=== PATIENT | male | born 1940 | race Caucasian/White ===

== ENCOUNTER 2019-06-19 07:47 | Inpatient (IN) | payer BC, OTHER ==
[~2019-06-19] VITALS: Ht 165.1 cm; Wt 78.5 kg
[2019-06-19 07:50] VITALS: BP 167/100
--- NOTE | 2019-06-19 07:50 | NUR ---
TO BED # 09 AMBULATORY
[2019-06-19] MEDS ORDERED: NACL 0.9% 1,000 ML IV ONE (08:20)
[2019-06-19] MEDS ORDERED: ASPIRIN 81 MG TAB.CHEW PO ONE (08:20)
--- NOTE | 2019-06-19 08:31 | NUR ---
ERMD AT BEDSIDE
[2019-06-19] MEDS ORDERED: METOPROLOL 50 MG TAB PO ONE (08:50)
[2019-06-19] MEDS ORDERED: NITROGLYCERIN 2% 1 GM PKT TP ONE (08:50)
--- NOTE | 2019-06-19 08:58 | NUR ---
77 Y/O MALE PRESENTS TO ER WITH C/O CHEST PAIN X3DAYS. NKDA, DENIES ANY PMH. NOT TAKING ANY PRESCRIBED OR OTC MEDICATIONS. DENIES ANY NAUSEA, DIARRHEA, HEADACHES, OR SOB. RATES PAIN AT 4 ON 0-10 SCALE. DENIES RADIATION TO OTHER AREAS OF THE BODY. STATES HE HAS INCREASED PHYSICAL DAILY EXERCISE ACTIVITY. 20G IV PLACED AT RAC. SIDERAIL X1. WILL CONTINUE TO MONITOR.
--- NOTE | 2019-06-19 09:00 | NUR ---
XRAY AT BEDSIDE
--- NOTE | 2019-06-19 09:05 | NUR ---
LAB AT BEDSIDE
[2019-06-19 09:15] LABS: BASOPHILS # (AUTO) 0.1 K/uL (0.00-0.22); BASOPHILS % (AUTO) 1.6 % (0.0-2.0); EOSINOPHILS % (AUTO) 0.5 % (0.0-4.0); HEMATOCRIT 46.4 % (36-52); HEMOGLOBIN 16.3 g/dL (12.0-18.0); LYMPHOCYTES # (AUTO) 0.9 K/uL (2.0-11.5); MEAN CORPUSCULAR HEMOGLOBIN 33 pg (27-31); MEAN CORPUSCULAR HGB CONC 35 g/dL (33-37); MEAN CORPUSCULAR VOLUME 95.2 fL (80-94); MONOCYTES # (AUTO) 0.7 K/uL (0.8-1.0); MONOCYTES % (AUTO) 12.2 % (1.7-9.3); NEUTROPHILS # (AUTO) 4.1 K/uL (1.8-7.7); NEUTROPHILS % (AUTO) 70.7 % (42.2-75.2); PLATELET COUNT (AUTO) 313 K/uL (140-450); RED BLOOD CELL COUNT(AUTO) 4.87 MIL/uL (4.20-6.10); RED CELL DISTRIBUTION WIDTH 14.6 % (11.6-13.7); WHITE BLOOD COUNT (AUTO) 5.8 K/uL (4.8-10.8)
[2019-06-19 09:17] LABS: BILIRUBIN,URINE 3+ (NEGATIVE); BLOOD, URINE TRACE-I (NEGATIVE); LEUKOCYTE ESTERASE ,URINE TRACE (NEGATIVE); NITRITE, URINE POSITIVE (NEGATIVE); PH,URINE 5.5 (5.0-9.0); UGLUCOSE TRACE (NEGATIVE)
[2019-06-19 09:22] LABS: APPEARANCE,URINE HAZY (CLEAR)
[2019-06-19 09:23] LABS: COLOR,URINE AMBER (YELLOW)
[2019-06-19 09:33] LABS: RBC,URINE 0-5 /HPF (0-5); WBC,URINE 0-5 /HPF (0-5)
[2019-06-19 09:35] LABS: URINE AMORPHOUS URATE 1+ /HPF (None Seen)
[2019-06-19 09:36] LABS: PROTHROMBIN TIME 9.6 secs (10.8-13.4)
[2019-06-19 09:37] LABS: ALBUMIN 3.1 g/dL (3.4-5.0); ANION GAP 11.5 (8-16); ASPARTATE AMINOTRANSFERASE 155 U/L (15-37); CARBON DIOXIDE 27.4 mmol/L (21-32); CHLORIDE 104 mmol/L (98-107); GLUCOSE 96 mg/dL (74-106); POTASSIUM 4.9 mmol/L (3.5-5.1); SODIUM SERUM 138 mmol/L (136-145); TOTAL BILIRUBIN 8.9 mg/dL (0.0-1.0); UREA NITROGEN, BLOOD 13 mg/dL (7-18)
--- NOTE | 2019-06-19 10:17 | NUR ---
PT RESTING IN BED, SIDE RAIL X1
--- NOTE | 2019-06-19 12:21 | NUR ---
PT RESTING IN BED, SIDE RAIL X1
[2019-06-19] MEDS ORDERED: ACETAMINOPHEN 325 MG TAB PO PRN (12:55)
[2019-06-19] MEDS ORDERED: LORazepam 2 MG/ML VIAL IM/IVP PRN (12:55)
[2019-06-19] MEDS ORDERED: ONDANSETRON 4 MG/2 ML VIAL IM/IVP PRN (12:55)
[2019-06-19] MEDS ORDERED: HYDROcodone/APAP 5/325 MG 1 TAB TAB PO PRN (12:55)
[2019-06-19] MEDS ORDERED: ZOLPIDEM 5 MG TAB PO PRN (12:55)
[2019-06-19] MEDS ORDERED: MORPHINE SULFATE 2 MG/ML SYR IVP PRN (12:55)
[2019-06-19] MEDS ORDERED: DOCUSATE SODIUM 100 MG GELCAP PO PRN (12:55)
--- NOTE | 2019-06-19 13:30 | NUR ---
Patient will be admitted to care of [facility]. Admited to TELEMETRY. Will go to room 106B. Belongings list completed. Report to FAY BECKHAM.
--- NOTE | 2019-06-19 13:30 | NUR ---
PATIENT WHEELED ON FLOOR. REPORT RECEIVED BY MARINE ENGINEERING PROFESSOR NURSE AT BEDSIDE FOR CONTINUITY OF CARE. MRSA SCREENING DONE. RESPIRATIONS EVEN AND UNLABORED ON ROOM AIR. PATIENT DENIES PAIN, IV SITE INTACT, SL. UPDATED BOARD. UPDATED PATIENT WITH PLAN OF CARE, HE VERBALIZED UNDERSTANDING. ORIENTED PATIENT TO ROOM, CALL LIGHT, TV, BATHROOM, VISITING HOURS. CALL LIGHT WITHIN REACH, WILL CONTINUE TO MONITOR PATIENT.
[2019-06-19 14:00] VITALS: BP 158/76
[2019-06-19] MEDS: NACL 0.9% 1,000 ML IV SCH (14:24)
[2019-06-19 14:43] LABS: PHOSPHORUS 2.7 mg/dL (2.5-4.9); THYROID STIMULATING HORMONE 0.92 uIU/mL (0.34-3.74)
--- NOTE | 2019-06-19 14:43 | NUR ---
DOCTOR DELROY IN TO SPEAK TO PATIENT. WILL WAIT FOR HIS NEW ORDERS. CALLED LAB TO COORDINATE BLOOD CULTURES.
[2019-06-19 16:00] VITALS: BP 156/82
--- NOTE | 2019-06-19 17:01 | NUR ---
PATIENT WHEELED OFF FLOOR TO GO TO RADIOLOGY FOR CT ABD/PELVIS. WILL WAIT FOR RESULTS.
--- NOTE | 2019-06-19 19:30 | NUR ---
REPORT GIVEN TO COLLEGE TUTOR NURSE AT BEDSIDE FOR CONTINUITY OF CARE. PATIENT IN STABLE CONDITION.
--- NOTE | 2019-06-19 19:31 | NUR ---
RECEIVED BEDSIDE REPORT FROM DAY RN. PT IS AAOX4. RESPIRATIONS ARE EQUAL AND UNLABORED ON ROOM AIR. LUNG SOUNDS ARE CLEAR. SKIN IS INTACT. C/C CHEST PAIN. DX CHEST PAIN. PT DENIES ANY PAIN AT THIS TIME. TROP NEG X2. PT IS AMBULATORY. IV ON RAC 20G NS INFUSING AT 60M/H. POC DISCUSSED WITH PT. CALL LIGHT IS WITHIN REACH. WILL CONTINUE TO MONITOR.
[2019-06-19 20:00] VITALS: BP 145/79
[2019-06-19] MEDS ORDERED: METOPROLOL 50 MG TAB PO SCH (21:00)
--- NOTE | 2019-06-19 21:00 | NUR ---
PATIENT IS RESTING COMFORTABLY IN BED. NO S/S OF DISTRESS. VSS. DENIES PAIN. ALL NEEDS MET AT THIS TIME. CALL LIGHT IS WITHIN REACH. WILL CONTINUE TO MONITOR.
--- NOTE | 2019-06-19 22:40 | NUR ---
PATIENT IS SLEEPING COMFORTABLY IN BED. CHEST RISE AND FALL NOTED. ALL SAFETY MEASURES ARE IN PLACE. CALL LIGHT IS WITHIN REACH.
[2019-06-20] VITALS: BP 144/88
--- NOTE | 2019-06-20 | NUR ---
VITAL SIGNS ARE WITHIN NORMAL LIMITS. ALL SAFETY MEASURES ARE IN PLACE. CALL LIGHT IS WITHIN REACH. WILL CONTINUE TO MONITOR.
--- NOTE | 2019-06-20 02:00 | NUR ---
PT IS SLEEPING WITH CHEST RISE AND FALL. NO S/S OF DISTRESS. CALL LIGHT IS WITHIN REACH.
[2019-06-20 04:00] VITALS: BP 123/44
--- NOTE | 2019-06-20 04:11 | NUR ---
VITAL SIGNS ARE WITHIN NORMAL LIMITS. ALL SAFETY MEASURES ARE IN PLACE. WILL CONTINUE TO MONITOR.
[2019-06-20] MEDS: NACL 0.9% 1,000 ML IV SCH (06:31)
--- NOTE | 2019-06-20 07:16 | NUR ---
GAVE BEDSIDE REPORT TO DAY RN. PT ENDORSED IN STABLE CONDITION.
--- NOTE | 2019-06-20 07:17 | NUR ---
RECEIVED REPORT FROM MANAGER LEGAL NURSE. PATIENT SITTING IN BED, NO DISTRESS NOTED. DENIES ANY PAIN. AAOX4, CALM, COOPERATIVE, SKIN COLOR APPROPRIATE ETHNICITY. SKIN INTACT. IV SITE INTACT, PATENT, AND INFUSING IVF PER MD ORDERS. RESPIRATIONS EVEN, UNLABORED, ON ROOM AIR. REVIEWED PLAN OF CARE WITH PATIENT. PATIENT VERBALIZED UNDERSTANDING. SAFETY MEASURES IN PLACE, CALL LIGHT WITHIN REACH. WILL CONTINUE TO MONITOR.
[2019-06-20 07:37] LABS: BASOPHILS % (AUTO) 0.6 % (0.0-2.0); EOSINOPHILS % (AUTO) 0.4 % (0.0-4.0); HEMATOCRIT 42.2 % (36-52); HEMOGLOBIN 14.9 g/dL (12.0-18.0); LYMPHOCYTES # (AUTO) 0.9 K/uL (2.0-11.5); LYMPHOCYTES % (AUTO) 16.2 % (20.5-51.1); MEAN CORPUSCULAR HEMOGLOBIN 34 pg (27-31); MEAN CORPUSCULAR HGB CONC 35 g/dL (33-37); MEAN CORPUSCULAR VOLUME 95.1 fL (80-94); MONOCYTES # (AUTO) 0.6 K/uL (0.8-1.0); MONOCYTES % (AUTO) 10.5 % (1.7-9.3); NEUTROPHILS # (AUTO) 4.1 K/uL (1.8-7.7); NEUTROPHILS % (AUTO) 72.3 % (42.2-75.2); PLATELET COUNT (AUTO) 304 K/uL (140-450); RED BLOOD CELL COUNT(AUTO) 4.44 MIL/uL (4.20-6.10); RED CELL DISTRIBUTION WIDTH 14.6 % (11.6-13.7); WHITE BLOOD COUNT (AUTO) 5.7 K/uL (4.8-10.8)
[2019-06-20 07:53] LABS: CARBON DIOXIDE 23.9 mmol/L (21-32); CHLORIDE 104 mmol/L (98-107); CREATININE 0.7 mg/dL (0.6-1.3); GLUCOSE 86 mg/dL (74-106); POTASSIUM 3.9 mmol/L (3.5-5.1); SODIUM SERUM 136 mmol/L (136-145); UREA NITROGEN, BLOOD 13 mg/dL (7-18)
[2019-06-20 07:56] LABS: CHOL/HDL RATIO 23.3 (1-4.5)
[2019-06-20 08:00] VITALS: BP 148/82
--- NOTE | 2019-06-20 08:51 | NUR ---
PATIENT HAS BEEN SCREENED AND CATEGORIZED HIGH NUTRITION RISK. PATIENT WILL BE SEEN WITHIN 1-2 DAYS OF ADMISSION. 06/20/19-06/21/[address]
[2019-06-20 09:32] LABS: ALBUMIN 2.8 g/dL (3.4-5.0); BILIRUBIN,DIRECT 6.4 mg/dL (0.0-0.3); TOTAL BILIRUBIN 7.8 mg/dL (0.0-1.0)
[2019-06-20] MEDS: ASPIRIN 81 MG TAB.CHEW PO SCH (09:49)
[2019-06-20] MEDS: LACTOBACILLUS RHAMNOSUS GG 1 EACH CAP PO SCH (09:50)
[2019-06-20] MEDS: ATORVASTATIN 20 MG TAB PO SCH (09:51)
[2019-06-20] MEDS: LISINOPRIL 5 MG TAB PO SCH (09:51)
[2019-06-20] MEDS: METOPROLOL 25 MG TAB PO SCH ×2 (09:52→20:05)
--- NOTE | 2019-06-20 09:58 | NUR ---
PATIENT SITTING DOWN IN BED TALKING TO FRIEND AT BEDSIDE. NO DISTRESS NOTED. DENIES ANY CHEST PAIN. SCHEDULED MEDICATIONS DUE GIVEN. WILL CONTINUE TO MONITOR.
[2019-06-20 12:00] VITALS: BP 158/88
--- NOTE | 2019-06-20 12:00 | NUR ---
DR. LAFLEUR AT BEDSIDE REVIEWING PLAN OF CAR WITH PATIENT. WILL CONTINUE TO MONITOR.
--- NOTE | 2019-06-20 14:30 | NUR ---
PATIENT SITTING IN BED TALKING TO FRIEND AT BEDSIDE. DENIES CHEST PAIN. CONDITION UNCHANGED. WILL CONTINUE TO MONITOR.
[2019-06-20] MEDS: LACTATED RINGERS 1,000 ML IV SCH (15:00)
--- NOTE | 2019-06-20 15:41 | NUR ---
DISCHARGE PLANNING: THIS IS A 78 Y/O FEMALE FROM HOME, WHO CAME IN DUE TO CHEST PAIN X 3 DAYS. PAST MEDICAL HISTORY INCLUDE GERD, S/P PROSTATECTOMY. INITIAL DIAGNOSIS OF CHEST PAIN. CURRENT LABS INCLUDE WBC 5.7, H/H 14.9/42.2, NA/K 136/3.9, BUN/CREA 13/0.7 AND TROP 0.017. ON RINGER'S SOLUTION AT 80 MLS/HR. CARDIO AND PULMO CONSULTS IN PLACE. DC PLAN BACK TO HOME ONCE STABLE. Addendum: 06/21/19 at 1526 by Alice Pritchett CM CURRENT LABS INCLUDE WBC 5.1, H/H 14.8/41.6, NA/K 139/4.1, BUN/CREA 13.0/0.9, ALB 2.5. BLOOD, URINE C/S AND MRSA NARES PENDING. S/P ERCP WITH STENT PLACEMENT WITH DR. LAFLEUR 06/21/2019. DC PLAN BACK TO HOME ONCE STABLE. Addendum: 06/22/19 at 1309 by Alice Pritchett CM 1225: RECEIVED A CALL FROM PIPE OF [facility], INQUIRING ABOUT THIS PATIENT. SHE STATED THAT ONE OF OUR DOCTORS CALLED THEM YESTERDAY REQUESTING FOR HIGHER LEVEL TRANSFER. CONTACTED DR. AWAN REGARDING THIS MATTER. HE STATED THAT PATIENT WILL DISCHARGING TODAY AND WILL HAVE A FOLLOW UP VISIT WITH [facility] PHYSICIAN OUT PATIENT FOLLOW UP VISIT. CONTACTED PIPE OF [facility] AND INFORMED HER THAT PATIENT NEEDS TO FOLLOW UP WITH DR. ALMEIDA OUT PATIENT. Addendum: 06/22/19 at 1438 by Alice Pritchett MET WITH THE PATIENT AT THE BEDSIDE TO HAVE HIM SIGN THE RELEASE OF INFORMATION FORM. PATIENT SIGNED IT AND PLACED IN THE CHART. [place] [facility] [place] [phone], ABLE TO SPEAK TO KESHAWN. SHE PROVIDED ME WITH DR. ALMEIDA'S FAX NUMBER [phone] AND ATTN TO [facility] FAXED TO THE PROVIDED NUMBER. CONTACTED PATIENT AT [phone], INFORMED HIM THAT I ALREADY SENT HIS RECORDS TO DR. ALMEIDA'S OFFICE. I ALSO PROVIDED HIM WITH [facility]'S PHONE NUMBER WHERE HE CAN FOLLOW UP WITH THE APPOINTMENT. HE STATED THAT HE REALLY APPRECIATE THE HELP.
[2019-06-20 16:00] VITALS: BP 155/89
--- NOTE | 2019-06-20 17:30 | NUR ---
SITTING IN BED WATCHING TV. CONDITION UNCHANGED. WILL CONTINUE TO MONITOR.
--- NOTE | 2019-06-20 19:14 | NUR ---
GAVE REPORT TO DATA SCIENCE AND IOT MANAGER NURSE FOR CONTINUITY OF CARE. PATIENT IN STABLE CONDITION.
--- NOTE | 2019-06-20 19:19 | NUR ---
RECEIVED PATIENT IN STABLE CONDITION FROM AM SHIFT FOR CONTINUITY OF CARE. FRIEND AT BEDSIDE. RESPIRATIONS EVEN, UNLABORED. IV SITE TO LEFT FOREARM 22G PATENT/INTACT, INFUSING FLUIDS WELL. NO C/O PAIN. NO S/SX ACUTE DISTRESS. CALL LIGHT WITHIN REACH. WILL CONTINUE TO MONITOR.
[2019-06-20 20:00] VITALS: BP 153/93
[2019-06-20] MEDS: FAMOTIDINE 20 MG TAB PO SCH (20:05)
--- NOTE | 2019-06-20 21:05 | NUR ---
MADE ROUNDS. PATIENT IS IN STABLE CONDITION. NO C/O PAIN. NO S/SX ACUTE DISTRESS. CALL LIGHT WITHIN REACH. WILL CONTINUE TO MONITOR.
--- NOTE | 2019-06-20 23:07 | NUR ---
MADE ROUNDS. PATIENT IS IN STABLE CONDITION. NO C/O PAIN. NO S/SX ACUTE DISTRESS. CALL LIGHT WITHIN REACH. WILL CONTINUE TO MONITOR.
[2019-06-21] VITALS: BP 151/83
--- NOTE | 2019-06-21 01:07 | NUR ---
PATIENT ASLEEP AND IN STABLE CONDITION. NO C/O PAIN. NO S/SX ACUTE DISTRESS. CALL LIGHT WITHIN REACH. WILL CONTINUE TO MONITOR.
--- NOTE | 2019-06-21 01:10 | NUR ---
RECEIVED PT SLEEPING, NO SIGNS OF DISTRESS, MAINTAINED ON NPO EXCEPT MEDS STATUS, IVF INFUSING WELL, MONITORED CLOSELY.
[2019-06-21] MEDS: LACTATED RINGERS 1,000 ML IV SCH ×2 (01:15→13:40)
[2019-06-21 04:00] VITALS: BP 139/85
--- NOTE | 2019-06-21 04:00 | NUR ---
PT SLEEPING, EASILY AROUSABLE, VITAL SIGNS STABLE, DENIES ANY PAIN, MAINTAINED ON NPO, MONITORED CLOSELY.
[2019-06-21 06:07] LABS: HEPATITIS A ANTIBODY IGM Negative (Negative); HEPATITIS B CORE AB TOTAL Negative (Negative); HEPATITIS B SURFACE ANTIBODY Non Reactive (.); HEPATITIS B SURFACE ANTIGEN Negative (Negative)
[2019-06-21 07:21] LABS: ALBUMIN 2.5 g/dL (3.4-5.0); ASPARTATE AMINOTRANSFERASE 107 U/L (15-37); CARBON DIOXIDE 26.1 mmol/L (21-32); CHLORIDE 104 mmol/L (98-107); CREATININE 0.9 mg/dL (0.6-1.3); GLUCOSE 80 mg/dL (74-106); MAGNESIUM 1.8 mg/dL (1.8-2.4); PHOSPHORUS 2.8 mg/dL (2.5-4.9); POTASSIUM 4.1 mmol/L (3.5-5.1); SODIUM SERUM 139 mmol/L (136-145); TOTAL BILIRUBIN 8.9 mg/dL (0.0-1.0); UREA NITROGEN, BLOOD 13 mg/dL (7-18)
--- NOTE | 2019-06-21 07:30 | NUR ---
PT AWAKE, NO SIGNS OF DISTRESS, REPORT GIVEN TO FAY VALDEZ FOR CONTINUITY OF CARE. Addendum: 06/21/19 at 0745 by Ren Ashford RN REPORT GIVEN TO FAY FLORES.
--- NOTE | 2019-06-21 07:35 | NUR ---
RECEIVED BEDSIDE REPORT FROM NIGHT NURSE. PATIENT IN STABLE CONDITION. INTRODUCED SELF. PATIENT AAOX4. NO S/S OF DISTRESS NOTED. SKIN WARM AND DRY TO TOUCH. BED IN LOW POSITION. IV INTACT AND PATENT TO LEFT FOREARM. PLANS OF CARE DISCUSSED. CALL LIGHT WITHIN REACH. PATIENT IS SCHEDULED FOR ERCP THIS MORNING. PATIENT AWARE.
[2019-06-21 08:00] VITALS: BP 152/88
[2019-06-21 08:32] LABS: BASOPHILS # (AUTO) 0.1 K/uL (0.00-0.22); BASOPHILS % (AUTO) 1.3 % (0.0-2.0); EOSINOPHILS % (AUTO) 0.8 % (0.0-4.0); HEMATOCRIT 41.6 % (36-52); HEMOGLOBIN 14.8 g/dL (12.0-18.0); LYMPHOCYTES % (AUTO) 20.2 % (20.5-51.1); MEAN CORPUSCULAR HEMOGLOBIN 34 pg (27-31); MEAN CORPUSCULAR HGB CONC 36 g/dL (33-37); MONOCYTES # (AUTO) 0.6 K/uL (0.8-1.0); MONOCYTES % (AUTO) 12.2 % (1.7-9.3); NEUTROPHILS # (AUTO) 3.3 K/uL (1.8-7.7); NEUTROPHILS % (AUTO) 65.5 % (42.2-75.2); PLATELET COUNT (AUTO) 314 K/uL (140-450); RED BLOOD CELL COUNT(AUTO) 4.38 MIL/uL (4.20-6.10); RED CELL DISTRIBUTION WIDTH 14.9 % (11.6-13.7); WHITE BLOOD COUNT (AUTO) 5.1 K/uL (4.8-10.8)
[2019-06-21] MEDS: SENNA 8.6 MG TAB PO SCH (09:00)
[2019-06-21] MEDS: ATORVASTATIN 20 MG TAB PO SCH (09:23)
[2019-06-21] MEDS: FAMOTIDINE 20 MG TAB PO SCH ×2 (09:23→21:31)
[2019-06-21] MEDS: METOPROLOL 25 MG TAB PO SCH ×2 (09:24→21:30)
[2019-06-21] MEDS: ASPIRIN 81 MG TAB.CHEW PO SCH (09:24)
[2019-06-21] MEDS: LISINOPRIL 5 MG TAB PO SCH (09:24)
[2019-06-21] MEDS: LACTOBACILLUS RHAMNOSUS GG 1 EACH CAP PO SCH (09:24)
--- NOTE | 2019-06-21 09:55 | NUR ---
PATIENT PICKED UP BY FAY MCKINNEY GOING TO OR FOR ERCP.
[2019-06-21] MEDS ORDERED: LABETALOL 100 MG/20 ML VIAL ONE (10:15)
[2019-06-21] MEDS ORDERED: KETAMINE 500 MG/5 ML VIAL ONE (10:15)
[2019-06-21] MEDS ORDERED: hydrALAZINE 20 MG/ML VIAL ONE (10:15)
[2019-06-21] MEDS ORDERED: ONDANSETRON 4 MG/2 ML VIAL IVP PRN (10:50)
[2019-06-21] MEDS ORDERED: HYDROmorphone 1 MG/ML AMP IVP PRN (10:50)
--- NOTE | 2019-06-21 12:05 | NUR ---
PATIENT IS STILL IN OR AT THIS TIME.
[2019-06-21 12:25] VITALS: BP 101/64
--- NOTE | 2019-06-21 12:25 | NUR ---
PATIENT RETURNED FROM THE OR. PATIENT AWAKE, ALERT AND ORIENTED X4. NO DISTRESS NOTED.
--- NOTE | 2019-06-21 14:25 | NUR ---
06/21/19 RD INITIAL ASSESSMENT COMPLETED PLEASE REFER TO NUTRITION ASSESSMENT UNDER CARE ACTIVITY FOR ESTIMATED NUTRITIONAL NEEDS. 1. CONTINUE FULL LIQUID DIET TOLERATED 2. IF/WHEN MEDICALLY APPROPRIATE ADVANCE TO A CARDIAC DIET 3. RD PROVIDED EDUCATION FOR LOWERING CHOLESTEROL. PT ACCEPTED EDUCATION 4. RD TO FOLLOW-UP 3-5 DAYS, MODERATE RISK RO [address]IRE[address] RD
--- NOTE | 2019-06-21 14:30 | NUR ---
PATIENT IS AAOX4. AMBULATES TO THE RESTROOM WITH STEADY GAIT. NO S/S OF DISTRESS NOTED.
[2019-06-21 16:00] VITALS: BP 147/79
--- NOTE | 2019-06-21 16:00 | NUR ---
DR. LAFLEUR STATED PLAN FOR PATIENT IS TO BE TRANSFERRED TO HIGHER LEVEL OF CARE.
--- NOTE | 2019-06-21 17:00 | NUR ---
PATIENT IS AAOX4. RESTING IN BED QUIETLY. ABLE TO MAKE NEEDS KNOWN. CALL LIGHT WITHIN REACH. IV INTACT AND PATENT TO LEFT WRIST. NO S/S OF DISTRESS NOTED.
--- NOTE | 2019-06-21 18:00 | NUR ---
RECEIVED CALL FROM PIPE FROM [facility] NURSE TO FAX FACE SHEET AT [phone]. PHONE # [phone].
--- NOTE | 2019-06-21 19:26 | NUR ---
REPORT GIVEN TO NIGHT NURSE. PATIENT IN STABLE CONDITION.
--- NOTE | 2019-06-21 19:27 | NUR ---
RECEIVED BEDSIDE REPORT FROM DAY SHIFT NURSE SANDRA RN, PT STABLE, NO DISTRESS NOTED, IV TO L WRIST 22G, LEAKING, WILL PUT IN NEW IV, PT ON ROOM AIR, NO SOB NOTED, INITIAL ASSESSMENT DONE, ALL SAFETY PRECAUTION MET, CALL LIGHT WITHIN REACH, WILL CONTINUE TO MONITOR.
--- NOTE | 2019-06-21 20:00 | NUR ---
NEW IV INSERTED TO LE HAND 24G PATENT, INTACT, INFUSING WELL, PT RESTING, CALL LIGHT WITHIN REACH, WILL CONTINUE OT MONITOR.
--- NOTE | 2019-06-21 21:31 | NUR ---
DUE MEDICATION ADMINISTERED, PT TOLERATED WELL, NO DISTRESS NOTED, CALL LIGHT WITHIN REACH, WILL CONTINUE TO MONITOR.
--- NOTE | 2019-06-21 23:44 | NUR ---
PT RESTING, NO DISTRESS NOTED, CALL LIGHT WITHIN REACH, WILL CONTINUE TO MONITOR.
[2019-06-22] VITALS: BP 147/86
[2019-06-22] MEDS: LACTATED RINGERS 1,000 ML IV SCH (02:20)
--- NOTE | 2019-06-22 02:20 | NUR ---
IVF BAG CHANGED, PT RESTING, CALL LIGHT WITHIN REACH, WILL CONTINUE TO MONITOR.
--- NOTE | 2019-06-22 07:10 | NUR ---
RECEIVED BEDSIDE REPORT FROM RENARD. PT IS AWAKE AND ALERT, IN BED, NO S/S OF DISTRESS OR C/O CHEST PAIN OR SOB. PT IS ON ROOM AIR, SKIN INTACT, IV SITE L HAND 24 G INFUSING LR 80 ML/HR. PT IS AMBULATORY. CALL LIGHT IS WITHIN REACH.
[2019-06-22 07:13] LABS: BASOPHILS # (AUTO) 0.1 K/uL (0.00-0.22); BASOPHILS % (AUTO) 1.6 % (0.0-2.0); EOSINOPHILS % (AUTO) 0.3 % (0.0-4.0); HEMATOCRIT 43.8 % (36-52); HEMOGLOBIN 15.1 g/dL (12.0-18.0); LYMPHOCYTES # (AUTO) 1.1 K/uL (2.0-11.5); LYMPHOCYTES % (AUTO) 18.5 % (20.5-51.1); MEAN CORPUSCULAR HEMOGLOBIN 33 pg (27-31); MEAN CORPUSCULAR HGB CONC 34 g/dL (33-37); MONOCYTES # (AUTO) 0.5 K/uL (0.8-1.0); NEUTROPHILS # (AUTO) 4.2 K/uL (1.8-7.7); NEUTROPHILS % (AUTO) 70.6 % (42.2-75.2); PLATELET COUNT (AUTO) 352 K/uL (140-450); RED BLOOD CELL COUNT(AUTO) 4.56 MIL/uL (4.20-6.10); RED CELL DISTRIBUTION WIDTH 14.6 % (11.6-13.7); WHITE BLOOD COUNT (AUTO) 5.9 K/uL (4.8-10.8)
[2019-06-22 07:25] LABS: MAGNESIUM 1.9 mg/dL (1.8-2.4); PHOSPHORUS 2.8 mg/dL (2.5-4.9)
--- NOTE | 2019-06-22 07:28 | NUR ---
ENDORSED PT TO DAY SHIFT NURSE VAN RN, PT STABLE, NO DISTRESS NOTED, CALL LIGHT WITHIN REACH.
[2019-06-22 07:30] LABS: ANION GAP 12.8 (8-16); CARBON DIOXIDE 25.8 mmol/L (21-32); CHLORIDE 109 mmol/L (98-107); CREATININE 0.8 mg/dL (0.6-1.3); GLUCOSE 89 mg/dL (74-106); POTASSIUM 3.6 mmol/L (3.5-5.1); SODIUM SERUM 144 mmol/L (136-145); UREA NITROGEN, BLOOD 10 mg/dL (7-18)
[2019-06-22 08:00] VITALS: BP 162/89
--- NOTE | 2019-06-22 08:19 | NUR ---
CALLED SECURITY REGARDING PT'S REPORT OF LOST GLASSES AFTER HIS ERCP YESTERDAY. SECURITY CHECKED THE CAMERA AND VERIFIED THAT PT CAME BACK TO HIS ROOM WITH HIS GLASSES AFTER THE PROCEDURE. SECURITY WILL CHECK THE CAMERA TO SEE IF THEY ARE THE SAME GLASSES HE WENT TO PROCEDURE IN. Addendum: 06/22/19 at 0930 by Michelle Ramirez RN PT HAS A PAIR OF GLASSES ON, BUT SAYS THEY ARE NOT HIS. SAYS HIS GLASSES ARE DARK TINTED, AND ROUND. ACCORDING TO SECURITY, PT HAD ON THE GLASSES HE HAS ON RIGHT NOW.
[2019-06-22] MEDS: SENNA 8.6 MG TAB PO SCH (09:00)
[2019-06-22] MEDS: LISINOPRIL 5 MG TAB PO SCH (09:24)
[2019-06-22] MEDS: ASPIRIN 81 MG TAB.CHEW PO SCH (09:25)
[2019-06-22] MEDS: ATORVASTATIN 20 MG TAB PO SCH (09:25)
[2019-06-22] MEDS: METOPROLOL 25 MG TAB PO SCH (09:25)
[2019-06-22] MEDS: FAMOTIDINE 20 MG TAB PO SCH (09:25)
[2019-06-22] MEDS: LACTOBACILLUS RHAMNOSUS GG 1 EACH CAP PO SCH (09:25)
--- NOTE | 2019-06-22 09:30 | NUR ---
AM MEDS ADMINISTERED, PT TOLERATED WELL. PT REFUSED THE SENNA.
[2019-06-22 10:50] VITALS: BP 168/87
[2019-06-22 13:23] LABS: ALBUMIN 2.7 g/dL (3.4-5.0); BILIRUBIN,DIRECT 5.1 mg/dL (0.0-0.3); TOTAL BILIRUBIN 6.9 mg/dL (0.0-1.0)
--- NOTE | 2019-06-22 13:57 | NUR ---
PT WAS GIVEN DC INSTRUCTIONS AND VERBALIZED UNDERSTANDING OF DC TEACHING, INCLUDING FOLLOWING UP WITH [facility]. IV SITE AND WRIST BAND WERE REMOVED. PT DC'D IN STABLE CONDITION.
== END 2019-06-22 14:00 | disposition home or self-care (01) | DRG 444 ==
LOC: MED 07:47 → MTU 12:44
PROVIDERS: ADMIT General Practice; ATTEND General Practice
PROC: 0FC98ZZ Extirpation of Matter from Common Bile Duct, Via Natural or Artificial Opening Endoscopic (ICD-10-PCS; 2019-06-21)
PROC: 0FD98ZX Extraction of Common Bile Duct, Via Natural or Artificial Opening Endoscopic, Diagnostic (ICD-10-PCS; 2019-06-21)
PROC: BF101ZZ Fluoroscopy of Bile Ducts using Low Osmolar Contrast (ICD-10-PCS; 2019-06-21)
PROC: 0F798DZ Dilation of Common Bile Duct with Intraluminal Device, Via Natural or Artificial Opening Endoscopic (ICD-10-PCS; principal; 2019-06-21 10:00)
DX: K80.51 Calculus of bile duct without cholangitis or cholecystitis with obstruction (principal); I21.A1 Myocardial infarction type 2; N39.0 Urinary tract infection, site not specified; E44.0 Moderate protein-calorie malnutrition; I50.30 Unspecified diastolic (congestive) heart failure; K21.9 Gastro-esophageal reflux disease without esophagitis; K29.70 Gastritis, unspecified, without bleeding; R94.5 Abnormal results of liver function studies; I11.0 Hypertensive heart disease with heart failure; R74.0 Nonspecific elevation of levels of transaminase and lactic acid dehydrogenase [LDH]; Z68.28 Body mass index [BMI] 28.0-28.9, adult; Z90.79 Acquired absence of other genital organ(s); Z82.49 Family history of ischemic heart disease and other diseases of the circulatory system
CPT/HCPCS: 36415; 71045; 74330; 76705; 80048; 80053; 80076; 81001; 83036; 83690; 83735; 83880; 84100; 84134; 84443; 84484; 85025; 85610; 85730; 86704; 86706; 86708; 86709; 86803; 87040; 87081; 87086; 87340; 93005; 99285; C1773; J0360; J0696; J3490; J7030; J7060; J7120; Q0092; Q9967

== ENCOUNTER 2021-09-03 09:43 | Emergency (ER) | payer OTHER ==
[~2021-09-03] VITALS: Ht 165.1 cm; Wt 75.7 kg
[2021-09-03 09:56] VITALS: BP 150/93
--- NOTE | 2021-09-03 09:59 | NUR ---
PT AMB TO BED 9.
--- NOTE | 2021-09-03 10:10 | NUR ---
DR. ALFORD BEDSIDE EVALUATING PT
--- NOTE | 2021-09-03 10:12 | NUR ---
BIB SON C/O FEET PAIN X 1 MONTH. PT COMPLAINS OF FEET PAIN THAT SOMETIMES RADIATES UP TO HIS CALVES. PAIN IS 5/10. PT RESTING IN BED. PMH:HTN, PROSTATE REMOVAL, GALL BLADDER REMOVAL NKA
--- NOTE | 2021-09-03 10:34 | NUR ---
XRAY AT PATIENT BEDSIDE
[2021-09-03] MEDS ORDERED: KETOROLAC 30 MG/ML VIAL IM ONE (11:05)
[2021-09-03] MEDS ORDERED: NAPR-1704 PO (11:06)
[2021-09-03] MEDS ORDERED: ACET-8386 PO (11:06)
[2021-09-03 11:41] VITALS: BP 150/93
--- NOTE | 2021-09-03 11:42 | NUR ---
Patient discharged with v/s stable. Written and verbal after care instructions given and explained. Patient alert, oriented and verbalized understanding of instructions. Ambulatory with steady gait. All questions addressed prior to discharge. ID band removed. Patient advised to follow up with PMD. Rx of NAPROXEN AND HYDROCODONE/ACETAMINOPHEN given. Patient educated on indication of medication including possible reaction and side effects. Opportunity to ask questions provided and answered.
== END 2021-09-03 11:42 | disposition home or self-care (01) ==
LOC: MED 09:43
DX: M19.072 Primary osteoarthritis, left ankle and foot (principal); M19.071 Primary osteoarthritis, right ankle and foot; I10 Essential (primary) hypertension; Z90.49 Acquired absence of other specified parts of digestive tract; Z85.46 Personal history of malignant neoplasm of prostate; Z98.890 Other specified postprocedural states; Z79.1 Long term (current) use of non-steroidal anti-inflammatories (NSAID); Z79.891 Long term (current) use of opiate analgesic
CPT/HCPCS: 73630; 93005; 96372; 99283; J1885; Q0092

== ENCOUNTER 2022-04-10 09:45 | Emergency (ER) | payer OTHER ==
[~2022-04-10] VITALS: Ht 165.1 cm; Wt 78.6 kg
[~2022-04-10 09:45] MED LIST: ACET-8386 PO; NAPR-1704 PO
[2022-04-10 10:39] VITALS: BP 159/90
--- NOTE | 2022-04-10 10:45 | NUR ---
COVID, FLU SWABS DONE.
--- NOTE | 2022-04-10 10:50 | NUR ---
BIB SELF C/O COUGH, 2/10 SORE THROAT, EAR PAIN X 1 WEEK. PMH: HTN, PROSTATE CANCER, CHOLECYSTECTOMY
[2022-04-10] MEDS ORDERED: METH4TAB1 PO (12:58)
--- NOTE | 2022-04-10 13:42 | NUR ---
Patient discharged with v/s stable. Written and verbal after care instructions given and explained. Patient alert, oriented and verbalized understanding of instructions. Ambulatory with steady gait. All questions addressed prior to discharge. ID band removed. Patient advised to follow up with PMD. Rx of DOSE MEDROL GIRISH given. Patient educated on indication of medication including possible reaction and side effects. Opportunity to ask questions provided and answered.
== END 2022-04-10 13:42 | disposition home or self-care (01) ==
LOC: MED 09:45
DX: J20.9 Acute bronchitis, unspecified (principal); Z20.822 Contact with and (suspected) exposure to COVID-19; H92.01 Otalgia, right ear; I10 Essential (primary) hypertension; Z79.899 Other long term (current) drug therapy; Z90.49 Acquired absence of other specified parts of digestive tract; Z85.46 Personal history of malignant neoplasm of prostate
CPT/HCPCS: 71045; 99284